=== PATIENT | male | born 1965 | race Caucasian/White ===

== ENCOUNTER → 2023-04-07 06:35 | Outpatient (REF) | payer OTHER, SELFPAY | LOC: MRI 06:35 | PROVIDERS: ATTENDING PHYSICIAN Psychiatry & Neurology Neurology; FAMILY PHYSICIAN Family Medicine | DX: M54.81 Occipital neuralgia (principal) | CPT/HCPCS: 70544 ==

== ENCOUNTER 2023-05-27 06:27 | Outpatient (RCR) | payer OTHER, SELFPAY | END 2023-05-27 23:59 | disposition home or self-care (01) | LOC: RST 06:27 | PROVIDERS: ATTENDING PHYSICIAN Psychiatry & Neurology Neurology; FAMILY PHYSICIAN Family Medicine | DX: F07.81 Postconcussional syndrome (principal); R47.02 Dysphasia; R41.841 Cognitive communication deficit; Z73.6 Limitation of activities due to disability; M43.22 Fusion of spine, cervical region | CPT/HCPCS: 92507; 92523; 97167; 97530 ==

== ENCOUNTER → 2024-02-09 10:43 | Outpatient (REF) | payer OTHER, SELFPAY | LOC: EEG 10:43 | PROVIDERS: ATTENDING PHYSICIAN Psychiatry & Neurology Neurology; FAMILY PHYSICIAN Family Medicine | DX: R42 Dizziness and giddiness (principal); R55 Syncope and collapse | CPT/HCPCS: 95816 ==

== ENCOUNTER → 2024-02-17 06:38 | Outpatient (REF) | payer OTHER, SELFPAY | LOC: MRI 06:38 | PROVIDERS: ATTENDING PHYSICIAN Psychiatry & Neurology Neurology; FAMILY PHYSICIAN Family Medicine | DX: R42 Dizziness and giddiness (principal) | CPT/HCPCS: 70551 ==